=== PATIENT | male | born 1975 | race Caucasian/White ===

== ENCOUNTER 2017-02-18 19:10 | Emergency (ER) | payer OTHER ==
[2017-02-18 19:14] VITALS: BP 127/80; PULSE 75; TEMP 97.6; BMI 28.7
--- NOTE | 2017-02-18 20:03 | PDOC ---
History of Present Illness - General Chief Complaint: Back Pain Stated Complaint: BACK PAIN Time Seen by Provider: 02/18/17 19:55 History Source: Patient Exam Limitations: No Limitations - History of Present Illness Initial Comments: CHIEF COMPLAINT: 42 y/o afebrile male with no significant PMH c/o left low back pain for the past 4 days. HISTORY OF PRESENT ILLNESS: The patient states he bent down to pick something up 4 days ago and when he stood up he felt left low back pain that is traveling down his left leg. He states the pain is a warm sensation down his leg. He states it's difficulty to find a comfortable position. He denies fall, trauma to back, midline back pain, saddle anesthesia, bowel/bladder incontinence, numbness/tingling in lower extremities. He has been taking flexeril prescribed to him from a prior episode of sciatica. Vital signs on arrival are within normal limits. REVIEW OF SYSTEMS: GENERAL/CONSTITUTIONAL: No fever/chills. No weakness. No weight change. HEAD, EYES, EARS, NOSE AND THROAT: No change in vision. No ear pain or discharge. No sore throat. GENITOURINARY: No dysuria, frequency, or change in urination. MUSCULOSKELETAL: +left low back pain with left leg pain. SKIN: No rash or easy bruising. NEUROLOGIC: No headache, vertigo, loss of consciousness, or loss of sensation. PHYSICAL EXAM: GENERAL: The patient is awake, alert, and fully oriented, in no acute distress. He is well appearing and ambulatory HEAD: Normal with no signs of trauma. ENT: Pupils equal, round and reactive to light, extraocular movements intact, sclera anicteric, conjunctiva clear. ABDOMEN: Soft, non-distended, non-tender even to deep palpation, no hepatomegaly or splenomegaly, no masses. BACK: No midline lumbar spine TTP or step offs. Pain with palpation of left lumbar paravertebral muscles and palpation of left gluteal muscles. EXTREMITIES: Normal range of motion, no edema. NEUROLOGICAL: Normal speech, normal gait. CN II-XII grossly intact. No saddle anesthesia. 2+ LE reflexes. PSYCH: Normal mood, normal affect. SKIN: Warm, dry, normal turgor, no rashes or lesions noted. Past History - Past Medical History Allergies/Adverse Reactions: Allergies Allergy/AdvReac Type Severity Reaction Status Date / Time shellfish derived Allergy Itching Verified 02/18/17 19:12 Home Medications: Ambulatory Orders Cyclobenzaprine HCl [Flexeril -] 5 mg PO TID PRN #12 tablet 10/05/16 Ibuprofen [Motrin -] 600 mg PO Q6H #30 tablet 02/18/17 Asthma: Yes - Psycho/Social/Smoking Cessation Hx Anxiety: No Suicidal Ideation: No Smoking History: Never smoked Have you smoked in the past 12 months: No Information on smoking cessation initiated: No Hx Alcohol Use: No Drug/Substance Use Hx: No Substance Use Type: None *Physical Exam - Vital Signs Last Vital Signs Temp Pulse Resp BP Pulse Ox 97.6 F 75 18 127/80 97 02/18/17 19:12 02/18/17 19:12 02/18/17 19:12 02/18/17 19:12 02/18/17 19:12 Medical Decision Making - Medical Decision Making A/P: 42 y/o male with sciatica flare. Plan is as follows: 1. IM toradol Suggested the patient take 600mg of ibuprofen every 6 hours for pain with food and continue taking the flexeril as well. Showed the patient a few stretches to perform multiple times per day and suggested he apply heat and massage to the affected area. Instructed him to avoid any lifting/twisting. Pt instructed to f/u with the patient's PCP and return to the ER with any worsening or concerning symptoms. The patient verbalizes understanding of all instructions, has no further questions and is awaiting discharge. *DC/Admit/Observation/Transfer Diagnosis at time of Disposition: Back pain with sciatica - Discharge Dispostion Disposition: HOME Condition at time of disposition: Good - Prescriptions Prescriptions: Ibuprofen [Motrin -] 600 mg PO Q6H #30 tablet - Referrals Referrals: Chanel Landin MD [Primary Care Provider] - - Patient Instructions Printed Discharge Instructions: DI for Back Pain With Sciatica Additional Instructions: Discharge Instructions: -Take your cyclobenzoprine as prescribed for muscle relaxer -Take 600mg of Ibuprofen every 6 hours for pain with food -stretch your low back and legs multiple times per day -Apply heat and massage to affected area to help with pain -Follow up with your doctor within 1 week -Return to the ER with any worsening or concerning symptoms
[2017-02-18] MEDS ORDERED: KETOROLAC TROMETHAMINE 60 MG/2 ML VIAL IM ONE (20:24)
[2017-02-18] MEDS ORDERED: KETOROLAC TROMETHAMINE 60 MG/2 ML VIAL ONE (20:27)
== END 2017-02-18 20:37 | disposition home or self-care (01) ==
LOC: JERFT 19:10
PROC: 3E0233Z Introduction of Anti-inflammatory into Muscle, Percutaneous Approach (ICD-10-PCS; principal; 2017-02-18)
DX: M54.42 Lumbago with sciatica, left side (principal); J45.909 Unspecified asthma, uncomplicated
CPT/HCPCS: 96372; 99281-25

== ENCOUNTER 2017-10-21 17:52 | Emergency (ER) | payer OTHER ==
[2017-10-21 17:59] VITALS: BP 155/88; PULSE 84; TEMP 99; BMI 29.1
--- NOTE | 2017-10-21 18:00 | PDOC ---
Rapid Medical Evaluation Chief Complaint: Cold Symptoms Time Seen by Provider: 10/21/17 17:55 Medical Evaluation: Allergies Allergy/AdvReac Type Severity Reaction Status Date / Time shellfish derived Allergy Itching Verified 10/21/17 17:56 10/21/17 17:59 I have performed a brief in-person evaluation of this patient. The patient presents with a chief complaint of: fever, cough, body aches x 1 month. H/o asthma Pertinent physical exam findings:Stable w/ unremarkable exam I have ordered the following: nothing The patient will proceed to the ED for further evaluation.
--- NOTE | 2017-10-21 18:34 | PDOC ---
History of Present Illness - General Chief Complaint: Cold Symptoms Stated Complaint: COLD SYMPTOMS Time Seen by Provider: 10/21/17 17:55 History Source: Patient Exam Limitations: No Limitations - History of Present Illness Initial Comments: 10/21/17 18:30 42-year-old male with a history of asthma presents to the emergency department complaining of subjective fever, productive cough, 1 month without nausea/ vomiting, headache, dizziness, lightheadedness, facial pain, visual disturbance , nasal congestion, rhinorrhea, sore throat, neck pain/stiffness, back pains, chest pain, shortness of breath, abdominal pains, flank pains, urinary symptoms. Patient states he's been taking [id number] supportive care with relief. Timing/Duration: reports: other (x4 weeks) Associated Symptoms: reports: cough, fever/chills (subjective), muscle aches. denies: nasal congestion, sore throat Past History - Past Medical History Allergies/Adverse Reactions: Allergies Allergy/AdvReac Type Severity Reaction Status Date / Time shellfish derived Allergy Itching Verified 10/21/17 17:56 Home Medications: Ambulatory Orders Cyclobenzaprine HCl [Flexeril -] 5 mg PO TID PRN #12 tablet 10/05/16 Ibuprofen [Motrin -] 600 mg PO Q6H #30 tablet 02/18/17 Asthma: Yes COPD: No - Suicide/Smoking/Psychosocial Hx Smoking History: Never smoked Have you smoked in the past 12 months: No Information on smoking cessation initiated: No Hx Alcohol Use: No Drug/Substance Use Hx: No Substance Use Type: None Review of Systems - Review of Systems Able to Perform ROS?: Yes Comments:: 10/21/17 18:32 CONSTITUTIONAL: +subjective fever Absent: chills, diaphoresis, generalized weakness, malaise, loss of appetite HEENT: Absent: rhinorrhea, nasal congestion, throat pain, throat swelling, difficulty swallowing, mouth swelling, ear pain, eye pain, visual Changes CARDIOVASCULAR: Absent: chest pain, loss of consciousness, palpitations, irregular heart rate, peripheral edema RESPIRATORY: +cough/yellowish phlegm Absent:shortness of breath, dyspnea with exertion, orthopnea, wheezing, stridor , hemoptysis GASTROINTESTINAL: Absent: abdominal pain, abdominal distension, nausea, vomiting, diarrhea, constipation, melena, hematochezia GENITOURINARY: Absent: dysuria, frequency, urgency, hesitancy, hematuria, flank pain, genital pain MUSCULOSKELETAL: Absent: myalgia, arthralgia, joint swelling SKIN: Absent: rash, itching, pallor HEMATOLOGIC/IMMUNOLOGIC: Absent: easy bleeding, easy bruising, lymphadenopathy, frequent infections ENDOCRINE: Absent: unexplained weight gain, unexplained weight loss, heat intolerance, cold intolerance Is the patient limited Welsh proficient: No *Physical Exam - Vital Signs Last Vital Signs Temp Pulse Resp BP Pulse Ox 99.0 F 84 18 155/88 100 10/21/17 17:57 10/21/17 17:57 10/21/17 17:57 10/21/17 17:57 10/21/17 17:57 - Physical Exam Comments: 10/21/17 18:32 GENERAL: Well developed, well nourished. Awake and alert. No acute distress. HEENT: Normocephalic, atraumatic. PERRLA, EOMI. No conjunctival pallor. Sclera are non- icteric. Moist mucous membranes. Oropharynx is clear. NECK: Supple. Full ROM. No JVD. Carotid pulses 2+ and symmetric, without bruits. No thyromegaly. No lymphadenopathy. CARDIOVASCULAR: Regular rate and rhythm. No murmurs, rubs, or gallops. Distal pulses are 2+ and symmetric. PULMONARY: No evidence of respiratory distress. Lungs clear to auscultation bilaterally. No wheezing, rales or rhonchi. ABDOMINAL: Soft. Non-tender. Non-distended. No rebound or guarding. No organomegaly. Normoactive bowel sounds. MUSCULOSKELETAL Normal range of motion at all joints. No bony deformities or tenderness. No CVA tenderness. EXTREMITIES: No cyanosis. No clubbing. No edema. No calf tenderness. SKIN: Warm and dry. Normal capillary refill. No rashes. No jaundice. *DC/Admit/Observation/Transfer Diagnosis at time of Disposition: Acute bronchitis Qualifiers: Bronchitis organism: unspecified organism Qualified Code(s): J20.9 - Acute bronchitis, unspecified - Discharge Dispostion Disposition: HOME Condition at time of disposition: Stable Admit: No - Referrals Referrals: Irving Salguero MD [Staff Physician] - - Patient Instructions Printed Discharge Instructions: DI for Acute Bronchitis Additional Instructions: Rest Increase fluids Tylenol alternating with Motrin as needed for fever/pain Z-Gabino as prescribed Return back to the emergency department for severe/persistent or worsening symptoms Follow with your PMD within 48 hours. - Post Discharge Activity
== END 2017-10-21 18:44 | disposition home or self-care (01) ==
LOC: JERFT 17:52
DX: J20.9 Acute bronchitis, unspecified (principal); J45.909 Unspecified asthma, uncomplicated
CPT/HCPCS: 99281-25

== ENCOUNTER 2018-02-21 01:35 | Emergency (ER) | payer OTHER ==
[2018-02-21 02:50] VITALS: BP 115/76; PULSE 80; TEMP 98.7; BMI 30.1
--- NOTE | 2018-02-21 03:22 | PDOC ---
History of Present Illness - General Chief Complaint: Cold Symptoms Stated Complaint: COUGH,CONGESTION Time Seen by Provider: 02/21/18 02:49 History Source: Patient Exam Limitations: No Limitations - History of Present Illness Initial Comments: 02/21/18 03:19 Best Contact: PCP:Dr. Lu Pmhx:Asthma Pshx:N/A Allergies:NKDA 43-year-old male presents to the emergency department complaining of a productive yellow phlegm cough 4 days without nausea, vomiting, fever/chills, headache, dizziness, lightheadedness, facial pains, earache, sore throat, neck pain/stiffness, back pains, chest pain, shortness of breath, abdominal pains, flank pains, urinary symptoms. Past History - Past Medical History Allergies/Adverse Reactions: Allergies Allergy/AdvReac Type Severity Reaction Status Date / Time shellfish derived Allergy Itching Verified 02/21/18 01:48 Home Medications: Ambulatory Orders Albuterol Sulfate Inhaler - [Ventolin HFA Inhaler -] 1 - 2 inh PO QID #1 inhaler 10/21/17 Azithromycin [Zithromax -] 250 mg PO UTDICT #6 tab 10/21/17 Azithromycin [Zithromax -] 250 mg PO UTDICT #6 tab 02/21/18 Asthma: Yes COPD: No - Suicide/Smoking/Psychosocial Hx Smoking History: Never smoked Have you smoked in the past 12 months: No Information on smoking cessation initiated: No Hx Alcohol Use: No Drug/Substance Use Hx: No Substance Use Type: None Review of Systems - Review of Systems Able to Perform ROS?: Yes Comments:: 02/21/18 03:20 CONSTITUTIONAL: Absent: fever, chills, diaphoresis, generalized weakness, malaise, loss of appetite HEENT: Absent: rhinorrhea, nasal congestion, throat pain, throat swelling, difficulty swallowing, mouth swelling, ear pain, eye pain, visual Changes CARDIOVASCULAR: Absent: chest pain, loss of consciousness, palpitations, irregular heart rate, peripheral edema RESPIRATORY: +cough Absent: shortness of breath, dyspnea with exertion, orthopnea, wheezing, stridor , hemoptysis GASTROINTESTINAL: Absent: abdominal pain, abdominal distension, nausea, vomiting, diarrhea, constipation, melena, hematochezia GENITOURINARY: Absent: dysuria, frequency, urgency, hesitancy, hematuria, flank pain, genital pain MUSCULOSKELETAL: Absent: myalgia, arthralgia, joint swelling SKIN: Absent: rash, itching, pallor HEMATOLOGIC/IMMUNOLOGIC: Absent: easy bleeding, easy bruising, lymphadenopathy, frequent infections ENDOCRINE: Absent: unexplained weight gain, unexplained weight loss, heat intolerance, cold intolerance NEUROLOGIC: Absent: headache, focal weakness or paresthesias, dizziness, unsteady gait, seizure, mental status changes, bladder or bowel incontinence PSYCHIATRIC: Absent: anxiety, depression, suicidal or homicidal ideation, hallucinations. Is the patient limited Ukrainian proficient: No *Physical Exam - Vital Signs Last Vital Signs Temp Pulse Resp BP Pulse Ox 98.7 F 80 20 115/76 97 02/21/18 01:48 02/21/18 01:48 02/21/18 01:48 02/21/18 01:48 02/21/18 01:48 - Physical Exam Comments: 02/21/18 03:21 GENERAL: Well developed, well nourished. Awake and alert. No acute distress. HEENT: Normocephalic, atraumatic. PERRLA, EOMI. No conjunctival pallor. Sclera are non- icteric. Moist mucous membranes. Oropharynx is clear. NECK: Supple. Full ROM. No JVD. Carotid pulses 2+ and symmetric, without bruits. No thyromegaly. No lymphadenopathy. CARDIOVASCULAR: Regular rate and rhythm. No murmurs, rubs, or gallops. Distal pulses are 2+ and symmetric. PULMONARY: No evidence of respiratory distress. Lungs clear to auscultation bilaterally. No wheezing, rales or rhonchi. ABDOMINAL: Soft. Non-tender. Non-distended. No rebound or guarding. No organomegaly. Normoactive bowel sounds. MUSCULOSKELETAL Normal range of motion at all joints. No bony deformities or tenderness. No CVA tenderness. EXTREMITIES: No cyanosis. No clubbing. No edema. No calf tenderness. SKIN: Warm and dry. Normal capillary refill. No rashes. No jaundice. NEUROLOGICAL: Alert, awake, appropriate. Cranial nerves 2-12 intact. No deficits to light touch and temperature in face, upper extremities and lower extremities. No motor deficits in the in face, upper extremities and lower extremities. Normoreflexic in the upper and lower extremities. Normal speech. Toes are down- going bilaterally. Gait is normal without ataxia. PSYCHIATRIC: Cooperative. Good eye contact. Appropriate mood and affect. ED Treatment Course - RADIOLOGY Radiograph Interpretation: 02/21/18 03:21 CXR 2v NAD *DC/Admit/Observation/Transfer Diagnosis at time of Disposition: Acute bronchitis Qualifiers: Bronchitis organism: unspecified organism Qualified Code(s): J20.9 - Acute bronchitis, unspecified - Discharge Dispostion Condition at time of disposition: Stable Admit: No - Referrals Referrals: Irving Salguero MD [Primary Care Provider] - - Patient Instructions Printed Discharge Instructions: Acute Bronchitis Additional Instructions: Increase fluids Antibiotics as prescribed: Z-Gabino Follow with your physician in 48 hours Return back to the ER for severe/persistent or worsening symptoms - Post Discharge Activity
== END 2018-02-21 04:15 | disposition home or self-care (01) ==
LOC: JER 01:35
DX: J20.9 Acute bronchitis, unspecified (principal)
CPT/HCPCS: 71046-TC-FY; 99281-25

== ENCOUNTER 2018-03-03 23:38 | Emergency (ER) | payer OTHER ==
[2018-03-04 00:15] VITALS: BP 130/89; PULSE 88; TEMP 98; BMI 30.5
--- NOTE | 2018-03-04 00:20 | PDOC ---
History of Present Illness - History of Present Illness Initial Comments: 03/04/18 00:29 The patient is a 43 year old male with history of asthma who presents to the ED complaining of 1 day of chest pain. The patient describes his chest pain as midsternal, radiating to the right side, worse with deep inspiration and lying on his right side. No fever or chills. No nausea, vomiting, or diaphoresis. No headache or blurred vision. No peripheral edema. Patient reports he was on a long distance flight approximately 1 month ago. <Caroline Lobato - Last Filed: 03/04/18 03:34> - General History Source: Patient <Grant Morse - Last Filed: 03/04/18 19:28> - General Chief Complaint: Chest Pain Stated Complaint: CHEST PAIN Time Seen by Provider: 03/04/18 00:15 Past History <Caroline Lobato - Last Filed: 03/04/18 03:34> - Past Medical History Asthma: Yes COPD: No - Suicide/Smoking/Psychosocial Hx Smoking History: Never smoked Have you smoked in the past 12 months: No Information on smoking cessation initiated: No Hx Alcohol Use: No Drug/Substance Use Hx: No Substance Use Type: None <Grant Morse - Last Filed: 03/04/18 19:28> - Past Medical History Allergies/Adverse Reactions: Allergies Allergy/AdvReac Type Severity Reaction Status Date / Time shellfish derived Allergy Itching Verified 03/04/18 00:13 Home Medications: Ambulatory Orders Albuterol Sulfate Inhaler - [Ventolin HFA Inhaler -] 1 - 2 inh PO QID #1 inhaler 10/21/17 Ibuprofen 800 mg PO TID #30 tablet 03/04/18 Methocarbamol [Robaxin -] 500 mg PO TID #30 tablet 03/04/18 Review of Systems - Review of Systems Able to Perform ROS?: Yes Comments:: 03/04/18 00:40 GENERAL/CONSTITUTIONAL: No fever or chills. No weakness. HEAD, EYES, EARS, NOSE AND THROAT: No change in vision. No ear pain or discharge. No sore throat. CARDIOVASCULAR: +Chest pain. No shortness of breath. No peripheral edema. RESPIRATORY: No cough, wheezing, or hemoptysis. GASTROINTESTINAL: No nausea, vomiting, diarrhea or constipation. GENITOURINARY: No dysuria, frequency, or change in urination. MUSCULOSKELETAL: No joint or muscle swelling or pain. No neck or back pain. SKIN: No rash NEUROLOGIC: No headache, vertigo, loss of consciousness, or change in strength/ sensation. ENDOCRINE: No increased thirst. No abnormal weight change. HEMATOLOGIC/LYMPHATIC: No anemia, easy bleeding, or history of blood clots. ALLERGIC/IMMUNOLOGIC: No hives or skin allergy. <Caroline Lobato - Last Filed: 03/04/18 03:34> *Physical Exam - Vital Signs Last Vital Signs Temp Pulse Resp BP Pulse Ox 98.0 F 88 16 130/89 96 03/04/18 00:07 03/04/18 00:07 03/04/18 00:07 03/04/18 00:07 03/04/18 00:25 - Physical Exam Comments: 03/04/18 00:41 GENERAL: Awake, alert, and fully oriented, in no acute distress HEAD: No signs of trauma EYES: PERRLA, EOMI, sclera anicteric, conjunctiva clear ENT: Auricles normal inspection, hearing grossly normal, nares patent, oropharynx clear without exudates. Moist mucosa NECK: Normal ROM, supple, no lymphadenopathy, JVD, or masses LUNGS: Decreased breath sounds at the bilateral lung bases. HEART: Regular rate and rhythm, normal S1 and S2, no murmurs, rubs or gallops ABDOMEN: Soft, nontender, normoactive bowel sounds. No guarding, no rebound. No masses EXTREMITIES: Normal range of motion, no edema. No clubbing or cyanosis. No cords, erythema, or tenderness NEUROLOGICAL: Cranial nerves II through XII grossly intact. Normal speech, normal gait SKIN: Warm, Dry, normal turgor, no rashes or lesions noted. <Caroline Lobato - Last Filed: 03/04/18 03:34> - Vital Signs Last Vital Signs Temp Pulse Resp BP Pulse Ox 98.0 F 88 16 130/89 96 03/04/18 00:07 03/04/18 00:07 03/04/18 00:07 03/04/18 00:07 03/04/18 00:07 <Grant Morse - Last Filed: 03/04/18 19:28> Heart Score/ECG Review #1 03/04/18 00:44 EKG obtained 23:47 Normal sinus rhythm at 83 bpm. Nonspecific T wave abnormality. Abnormal EKG. <Caroline Lobato - Last Filed: 03/04/18 03:34> ED Treatment Course - LABORATORY CBC & Chemistry Diagram: 03/04/18 00:30 03/04/18 00:30 <Caroline Lobato - Last Filed: 03/04/18 03:34> - LABORATORY CBC & Chemistry Diagram: 03/04/18 00:30 03/04/18 00:30 <Grant Morse - Last Filed: 03/04/18 19:28> Medical Decision Making - Medical Decision Making 03/04/18 01:35 Labs noted Laboratory Tests 03/04/18 00:30 INR 1.15 H D-Dimer 523 H 03/04/18 03:34 CTA chest, preliminary interpretation by [facility] FINDINGS: 1. limited evaluation of the distal/peripheral pulmonary arteries due to suboptimal opacification with intravenous contrast. Otherwise, no evidence for filling defect seen within the central pulmonary arteries to suggest pulmonary embolus. The main pulmonary arterial segment is not dilated. 2. No thoracic aortic aneurysm or dissection. 3. Small bibasilar patchy consolidations suggest atelectasis, although small infiltrate cannot be totally excluded.. 4. Elevation of the right hemidiaphragm. 5. No significant pleural effusion or pneumothorax. THIS DOCUMENT HAS BEEN ELECTRONICALLY SIGNED Carlos Greer M.D <Caroline Lobato - Last Filed: 03/04/18 03:34> - Medical Decision Making 03/04/18 05:21 Dr. Morse: The scribe's documentation has been prepared under my direction and personally reviewed by me in its entirery. I confirm that the note above accurately reflects all work, treatment, procedures, and medical decision making performed by me. <Grant Morse - Last Filed: 03/04/18 19:28> *DC/Admit/Observation/Transfer - Attestations Scribe Attestion: 03/04/18 00:41 Documentation prepared by Caroline Lobato, acting as medical referral coordinator for Grant Morse DO. <Caroline Lobato - Last Filed: 03/04/18 03:34> - Discharge Dispostion Decision to Admit order: No <Grant Morse - Last Filed: 03/04/18 19:28> Diagnosis at time of Disposition: Chest wall pain Chest pain Qualifiers: Chest pain type: precordial pain Qualified Code(s): R07.2 - Precordial pain - Discharge Dispostion Disposition: HOME Condition at time of disposition: Stable - Prescriptions Prescriptions: Ibuprofen 800 mg PO TID #30 tablet Methocarbamol [Robaxin -] 500 mg PO TID #30 tablet - Referrals Referrals: Irving Salguero MD [Primary Care Provider] - - Patient Instructions Printed Discharge Instructions: DI for Chest Pain Additional Instructions: Please follow up with your doctor for re-evaluation if your pain doesn't improve. Return if any problems - Post Discharge Activity Forms/Work/School Notes: Back to Work
[2018-03-04] MEDS ORDERED: ASPIRIN 81 MG CHEWABLE TABLETS PO ONE (00:23)
[2018-03-04] MEDS ORDERED: ASPIRIN 325 MG TABLET ONE (00:42)
[2018-03-04 00:44] LABS: BASO % 0.7 % (0-2.0); EOS % 1.9 % (0-4.5); HEMATOCRIT 44.7 % (35.4-49); HEMOGLOBIN 14.7 GM/dL (11.7-16.9); LYMPH % 29.7 % (8-40); MCH 26.8 pg (25.7-33.7); MCHC 32.8 g/dl (32.0-35.9); MEAN CELL VOLUME 81.7 fl (80-96); MEAN PLT VOLUME 9.1 fl (7.5-11.1); MONO % 10.3 % (3.8-10.2); NEUT % 57.4 % (42.8-82.8); PLATELET COUNT 276 K/MM3 (134-434); RBC 5.47 M/mm3 (4.00-5.60); RDW 13.7 % (11.9-15.9)
[2018-03-04 01:02] LABS: INR 1.15 (0.82-1.09)
[2018-03-04 01:13] LABS: ALBUMIN 3.9 g/dl (3.4-5.0); ANION GAP 9 (8-16); BILIRUBIN,TOTAL 0.5 mg/dL (0.2-1.0); BLOOD UREA NITROGEN 19 mg/dL (7-18); CALCIUM 8.9 mg/dL (8.5-10.1); CHLORIDE 103 mmol/L (98-107); CO2 29 mmol/L (21-32); CREATININE 1.1 mg/dL (0.7-1.3); GLUCOSE,RANDOM 96 mg/dL (74-106); MAGNESIUM 2.2 mg/dL (1.8-2.4); POTASSIUM 4.4 mmol/L (3.5-5.1); SGOT/AST 30 U/L (15-37); SGPT/ALT 53 U/L (12-78); SODIUM 141 mmol/L (136-145); TOT PROT 8.1 g/dl (6.4-8.2)
[2018-03-04 01:16] LABS: ALK PHOS 77 U/L (45-117)
[2018-03-04] MEDS ORDERED: methylPREDNISolone NA SUCC 125 MG/2 ML VIAL IVPB ONE (01:44)
[2018-03-04] MEDS ORDERED: methylPREDNISolone NA SUCC 125 MG/2 ML VIAL ONE (01:53)
[2018-03-04] MEDS ORDERED: METHOCARBAMOL 500 MG TABLET PO ONE (05:18)
[2018-03-04] MEDS ORDERED: IBUPROFEN 400 MG TABLET (FP) PO ONE ×2 (05:18→05:23)
[2018-03-04] MEDS ORDERED: METHOCARBAMOL 500 MG TABLET ONE (05:22)
--- NOTE | 2018-03-04 10:39 | EKG ---
Test Reason : Blood Pressure : / mmHG Vent. Rate : 087 BPM Atrial Rate : 087 BPM P-R Int : 158 ms QRS Dur : 084 ms QT Int : 316 ms P-R-T Axes : 017 037 005 degrees QTc Int : 380 ms NORMAL SINUS RHYTHM NONSPECIFIC T WAVE ABNORMALITY ABNORMAL ECG NO PREVIOUS ECGS AVAILABLE Confirmed by TATO CERVANTES, SUPA ([id number]) on 03/04/2018 10:39:15 AM Referred By: Confirmed By:SUPA GODWIN MD
== END 2018-03-04 05:35 | disposition home or self-care (01) ==
LOC: JER 23:38 → SUPCPDRO 23:38 → JER 03-04 05:35
PROC: 3E033GC Introduction of Other Therapeutic Substance into Peripheral Vein, Percutaneous Approach (ICD-10-PCS; principal; 2018-03-03)
DX: R07.89 Other chest pain (principal); R07.2 Precordial pain
CPT/HCPCS: 36415; 71046-TC-FY; 71275-TC; 80053; 82550; 82553; 83735; 84484; 85025; 85379; 85610; 93005; 93010; 96374; 99284-25

== ENCOUNTER 2018-07-23 15:40 | Emergency (ER) | payer SELFPAY ==
[2018-07-23 16:10] VITALS: BP 130/86; PULSE 87; TEMP 97.8; BMI 29.1
--- NOTE | 2018-07-23 16:10 | PDOC ---
Rapid Medical Evaluation Chief Complaint: Cold Symptoms Time Seen by Provider: 07/23/18 16:07 Medical Evaluation: Allergies Allergy/AdvReac Type Severity Reaction Status Date / Time shellfish derived Allergy Itching Verified 03/04/18 00:13 07/23/18 16:07 CC: Cough HPI: Pt is an 43 YO male who states that he has had a cough x 2 days. He has a hx of asthma and has been using his inhalers. He states he had left over Amoxicillin which he has been taking without success. Pt denies SOB, CP I have performed a brief in- person evaluation of this patient. Pertinent Physical Findings: Skin: Clear Lungs: Clear Heart: RRR Neuro: Alert Psych: Appropriate affect I have ordered: nothing at this time The patient will proceed to: [facility] for further evaluation. Discharge Disposition - Diagnosis Cough - Referrals - Patient Instructions - Post Discharge Activity
[2018-07-23] MEDS ORDERED: predniSONE 20 MG TABLET (UD) PO ONE (17:12)
[2018-07-23] MEDS ORDERED: ALBUTEROL SO4 2.5/IPRATROPIUM 0.5 INH SOL 3 ML VIAL.NEB. NEB ONE ×2 (17:12→17:14)
[2018-07-23] MEDS ORDERED: predniSONE 20 MG TABLET (UD) ONE (17:14)
--- NOTE | 2018-07-23 17:19 | PDOC ---
History of Present Illness - General Chief Complaint: Cold Symptoms Stated Complaint: ASTHMA Time Seen by Provider: 07/23/18 16:07 History Source: Patient Exam Limitations: No Limitations - History of Present Illness Initial Comments: 07/23/18 17:14 Patient came to emergency department with complaints of worsening asthma. States got a cold on Friday and is progressively worsened. has ALLERGIES which have been worse the past few weeks, and has a large amount of posterior sinus drainage. Has been using his albuterol pumps at home but states feels is progressively worsened Timing/Duration: reports: getting worse Severity: reports: mild, moderate Possible Cause: Yes: smoke exposure Modifying Factors: improves with: albuterol inhaler Associated Symptoms: reports: chest pain/soreness, cough, fever/chills, shortness of breath Past History - Travel Traveled outside of the country in the last 30 days: No Close contact w/someone who was outside of country & ill: No - Past Medical History Allergies/Adverse Reactions: Allergies Allergy/AdvReac Type Severity Reaction Status Date / Time shellfish derived Allergy Itching Verified 03/04/18 00:13 Home Medications: Ambulatory Orders Albuterol Sulfate Inhaler - [Ventolin HFA Inhaler -] 1 - 2 inh PO Q4H #1 inhaler 07/23/18 predniSONE [Deltasone -] 20 mg PO BID #8 tablet 07/23/18 Asthma: Yes COPD: No - Immunization History Immunization Up to Date: Yes - Suicide/Smoking/Psychosocial Hx Smoking History: Never smoked Have you smoked in the past 12 months: No Hx Alcohol Use: No Drug/Substance Use Hx: No Substance Use Type: None Review of Systems - Review of Systems Able to Perform ROS?: Yes Is the patient limited Portuguese proficient: Yes Constitutional: Yes: Symptoms Reported, See HPI, Malaise. No: Fever HEENTM: Yes: Symptoms Reported, Nose Congestion Respiratory: Yes: Symptoms reported, See HPI, Cough, Shortness of Breath, Wheezing Cardiac (ROS): No: Symptoms Reported Integumentary: Yes: See HPI. No: Symptoms Reported Neurological: Yes: Symptoms reported All Other Systems: Reviewed and Negative *Physical Exam - Vital Signs Last Vital Signs Temp Pulse Resp BP Pulse Ox 97.8 F 87 16 130/86 97 07/23/18 16:08 07/23/18 16:08 07/23/18 16:08 07/23/18 16:08 07/23/18 16:08 - Physical Exam General Appearance: Yes: Nourished, Appropriately Dressed, Apparent Distress, Mild Distress HEENT: positive: ACE, TMs Normal, Pharynx Normal, Nasal Congestion, Rhinorrhea Neck: positive: Supple. negative: Tender, Lymphadenopathy (R), Lymphadenopathy (L) Respiratory/Chest: positive: Lungs Clear, Decreased Breath Sounds, Wheezing. 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 Breath sounds much clearer, patient states feels better and we'll discharge *DC/Admit/Observation/Transfer Diagnosis at time of Disposition: Allergic rhinitis Qualifiers: Allergic rhinitis trigger: other Allergic rhinitis seasonality: seasonal Qualified Code(s): J30.89 - Other allergic rhinitis - Discharge Dispostion Disposition: HOME Condition at time of disposition: Stable Decision to Admit order: No - Prescriptions Prescriptions: Albuterol Sulfate Inhaler - [Ventolin HFA Inhaler -] 1 - 2 inh PO Q4H #1 inhaler predniSONE [Deltasone -] 20 mg PO BID #8 tablet - Referrals - Patient Instructions Printed Discharge Instructions: DI for Allergic Rhinitis Additional Instructions: Rest, drink lots of fluids: Teas, water, soups Saltwater gargles. Consider humidifier in room at night Steamy showers/seem to face break up mucus Avoid contact with allergens, exposure to pollens, close windows on a windy day Lots of handwashing and good hygiene Continue [id number] medications for symptomatic relief- may use allergic eyedrops for itching I Continue antihistamines daily until pollen season is over; Zyrtec, Claritin, Sofy during the daytime and Benadryl at nighttime as will make sleepy 2 puffs Proventil every 4-6 hours for the next 2 days then as needed He for the next 4 days Tylenol or Motrin for fever and pain Followup with private physician in one to 2 days as needed Return to emergency department for worsened symptoms, fevers, dehydration - Post Discharge Activity Forms/Work/School Notes: Back to Work
== END 2018-07-23 18:28 | disposition home or self-care (01) ==
LOC: JERFT 15:40
PROC: 3E0F7GC Introduction of Other Therapeutic Substance into Respiratory Tract, Via Natural or Artificial Opening (ICD-10-PCS; principal; 2018-07-23)
PROC: 3E0F7GC Introduction of Other Therapeutic Substance into Respiratory Tract, Via Natural or Artificial Opening (ICD-10-PCS; 2018-07-23)
DX: J30.89 Other allergic rhinitis (principal); J45.909 Unspecified asthma, uncomplicated
CPT/HCPCS: 99281-25; J7620